=== PATIENT | female | born 1970 | race African-American/Black ===

== ENCOUNTER 2019-08-17 06:55 | Day surgery (SDC) | payer BC ==
[~2019-08-17] VITALS: Ht 170.2 cm; Wt 89.4 kg
[2019-08-17] MEDS ORDERED: RESTORIL 1515 MG/CAP PO (07:35)
[2019-08-17] MEDS ORDERED: CATAPRES 0.1MG0.1 MG PO (07:35)
[2019-08-17] MEDS ORDERED: NORVASC 10MG10 MG PO (07:36)
[2019-08-17] MEDS ORDERED: COZAAR 50MG50 MG/TAB PO (07:36)
[2019-08-17] MEDS ORDERED: LASIX 20MG TABL20 MG PO (07:37)
[2019-08-17] MEDS ORDERED: NATURAL E400 IU PO (07:37)
[2019-08-17] MEDS ORDERED: AMITRIPTYLINE H25 M1 PO (07:37)
[2019-08-17] MEDS ORDERED: B COMPLEX & B121 TAB PO (07:38)
[2019-08-17] MEDS ORDERED: CALCIUM 600MG+D1 TAB PO (07:38)
[2019-08-17] MEDS ORDERED: VITAMINC1000TA PO (07:38)
[2019-08-17 07:39] VITALS: BP 131/97; PULSE 80; TEMP 98.4
[2019-08-17 09:20] VITALS: BP 136/86; PULSE 87; TEMP 97.7
--- NOTE | 2019-08-17 09:20 | NUR ---
Patient arrives to [facility] [place] [facility] via cart, accompanied by Endo RN. Bedside report is received. The patient is coughing, but denies pain or nausea. She is alert and oriented. Her family is at the bedside. Monitoring is applied - VSS and WNL on room air. RT comes to the bedside to administer ordered breathing treatment. Will continue to monitor.
[2019-08-17 09:35] VITALS: BP 117/73; PULSE 87
--- NOTE | 2019-08-17 09:35 | NUR ---
Patient has completed her breathing treatment. Coughing is less frequent. Lung sounds are auscultated and are clear in all lobes. She denies pain or nausea. She is offered and receives water to drink. Gag reflex is intact.
[2019-08-17 09:50] VITALS: BP 118/87; PULSE 80
--- NOTE | 2019-08-17 09:50 | NUR ---
Patient ambulates to the restroom, voids, and returns to room. Gait steady. She states she is ready to go home. Will return with discharge instructions.
--- NOTE | 2019-08-17 10:04 | NUR ---
Discharge instructions are discussed. She denies questions and verbalizes understanding. PIV is removed with catheter intact and hemostasis achieved. She is changing to her clothing independently.
--- NOTE | 2019-08-17 10:08 | NUR ---
Patient is escorted to the exit via wheelchair by staff. She is discharged to home with ride in private vehicle at 1008.
== END 2019-08-17 10:08 | disposition home or self-care (01) ==
LOC: SDCO 06:55
DX: R91.8 Other nonspecific abnormal finding of lung field (principal); E66.9 Obesity, unspecified; G47.33 Obstructive sleep apnea (adult) (pediatric); M19.90 Unspecified osteoarthritis, unspecified site; F17.210 Nicotine dependence, cigarettes, uncomplicated
CPT/HCPCS: J2704; J7120

== ENCOUNTER → 2019-09-20 | Outpatient (CLI) | payer BC ==
[~2019-09-20] VITALS: Ht 170.2 cm; Wt 88.6 kg
[2019-09-20] VITALS (11 sets, daily range): BP systolic 122–164; BP diastolic 80–127; PULSE 55–102
[~2019-09-20] MED LIST: AMITRIPTYLINE H25 M1 PO; B COMPLEX & B121 TAB PO; CALCIUM 600MG+D1 TAB PO; CATAPRES 0.1MG0.1 MG PO; COZAAR 50MG50 MG/TAB PO; LASIX 20MG TABL20 MG PO; MICARDIS80 MG PO; NATURAL E400 IU PO; NORVASC 10MG10 MG PO; RESTORIL 1515 MG/CAP PO; VITAMINC1000TA PO
== END ==
LOC: COL.RAD 13:30
DX: C34.32 Malignant neoplasm of lower lobe, left bronchus or lung (principal); C79.51 Secondary malignant neoplasm of bone; C79.31 Secondary malignant neoplasm of brain; I10 Essential (primary) hypertension

== ENCOUNTER 2019-10-08 07:01 | Outpatient (CLI) | payer BC ==
[~2019-10-08] VITALS: Ht 170.2 cm; Wt 86.4 kg
[2019-10-08 08:07] VITALS: BP 129/98; PULSE 53; TEMP 98.2
[2019-10-08] MEDS ORDERED: COZAAR100 MG PO (08:18)
[2019-10-08] MEDS ORDERED: PROVENTIL0.09 MG/A1 IH (08:20)
[2019-10-08] MEDS ORDERED: ANORO IH (08:21)
[2019-10-08 09:20] VITALS: BP 123/86; PULSE 54; TEMP 97.9
--- NOTE | 2019-10-08 09:20 | NUR ---
Pt returns from thoracentesis via cart and this RN accompanying. Pt alert and oriented. Pt denies pain. Call light within reach. Daughter present in room. Pt requesting diet Pepsi.
--- NOTE | 2019-10-08 09:45 | NUR ---
X-ray here for post-op chest x-ray.
--- NOTE | 2019-10-08 10:00 | NUR ---
Pt taking drink well. No complications voiced by patient.
[2019-10-08 10:10] VITALS: BP 137/97; PULSE 81
--- NOTE | 2019-10-08 10:20 | NUR ---
Discharge instructions given to patient and daughter. Handed to them are a thank you card, discharge information, diagnosis information, and a discharge med sheet. All questions answered to their satisfaction.
--- NOTE | 2019-10-08 10:35 | NUR ---
Pt transferred out of hospital via wheelchair and this RN to waiting private vehicle driven by daughter.
[2019-10-08 12:55] LABS: PLEURAL FLUID RBC 8000 /mm3 (0-0); PLEURAL FLUID WBC 3217 /mm3
[2019-10-08 13:03] LABS: GLUCOSE,PLEURAL FLUID 79 mg/dL; TOTAL PROTEIN,PLEURAL FLUID 4.9 gm/dL
[2019-10-08 13:13] LABS: PLEURAL FLUID APPEARANCE CLOUDY; PLEURAL FLUID COLOR AMBER
[2019-10-08 17:43] VITALS: BP 147/96; PULSE 69
== END 2019-10-08 10:35 | disposition home or self-care (01) ==
LOC: SDCO
PROVIDERS: Internal Medicine Pulmonary Disease
DX: J90 Pleural effusion, not elsewhere classified (principal); I10 Essential (primary) hypertension; E66.9 Obesity, unspecified; M19.90 Unspecified osteoarthritis, unspecified site; G47.33 Obstructive sleep apnea (adult) (pediatric); F17.210 Nicotine dependence, cigarettes, uncomplicated; Z85.118 Personal history of other malignant neoplasm of bronchus and lung; Z88.8 Allergy status to other drugs, medicaments and biological substances
CPT/HCPCS: 19804

== ENCOUNTER 2019-10-22 08:18 | Outpatient (CLI) | payer BC ==
[~2019-10-22] VITALS: Ht 170.2 cm; Wt 86.4 kg
[~2019-10-22 08:18] MED LIST changes: +ANORO IH; +COZAAR100 MG PO; +PROVENTIL0.09 MG/A1 IH
[2019-10-22] MEDS ORDERED: ZOFRAN 4MG T4 MG/TAB PO (08:57)
[2019-10-22] MEDS ORDERED: DECADRON 4MG TAB4 MG PO (08:58)
[2019-10-22 09:16] VITALS: BP 135/105; PULSE 89; TEMP 97.9
[2019-10-22 10:40] VITALS: BP 124/88; PULSE 88; TEMP 98.3
--- NOTE | 2019-10-22 10:40 | NUR ---
Pt returns from Endo procedure via cart and this RN. Monitors on and alarms set. Call light within reach. Friend present in room. Pt desires diet Pepsi. Pt coughing some. Pt denies any complaints of pain or nausea.
[2019-10-22 10:45] VITALS: BP 130/90; PULSE 100
--- NOTE | 2019-10-22 10:50 | NUR ---
Pt taking drink well. No complications voiced.
[2019-10-22 11:00] VITALS: BP 120/88; PULSE 86
[2019-10-22 11:15] VITALS: BP 115/91; PULSE 80
--- NOTE | 2019-10-22 11:23 | NUR ---
Discharge instructions given to pt and friend. Handed to them are a thank you card, discharge instructions, and diagnosis information. All questions answered to their satisfaction.
--- NOTE | 2019-10-22 11:28 | NUR ---
Pt transferred out of hospital via wheelchair and this RN to waiting private vehicle driven by friend.
== END 2019-10-22 11:28 | disposition home or self-care (01) ==
LOC: SDCO
DX: J91.0 Malignant pleural effusion (principal); C34.90 Malignant neoplasm of unspecified part of unspecified bronchus or lung; J44.9 Chronic obstructive pulmonary disease, unspecified; I10 Essential (primary) hypertension; D57.3 Sickle-cell trait; E66.9 Obesity, unspecified; M19.90 Unspecified osteoarthritis, unspecified site; F17.210 Nicotine dependence, cigarettes, uncomplicated; G47.33 Obstructive sleep apnea (adult) (pediatric)
CPT/HCPCS: 19804

== ENCOUNTER 2019-10-25 15:21 | Inpatient (IN) | payer BC ==
[2019-10-25] VITALS (124 sets, daily range): BP systolic 135; BP diastolic 95; PULSE 86; TEMP 98.4; O2SAT 70–100
[~2019-10-25] VITALS: Ht 170.2 cm; Wt 79.4 kg
[~2019-10-25 15:21] MED LIST changes: +DECADRON 4MG TAB4 MG PO; +ZOFRAN 4MG T4 MG/TAB PO
[2019-10-25 17:01] LABS: HEMATOCRIT 40.4 % (37.0-47.0); HEMOGLOBIN 13.3 g/dl (12.5-16.0); MEAN CELL VOLUME 87 fl (80.0-100.0); MEAN CORPUSCULAR HEMOGLOBIN 29 pg (27.0-31.0); MEAN CORPUSCULAR HGB CONC 33 g/dl (33.0-37.0); MEAN PLATELET VOLUME 11.3 fl (7.4-10.4); PLATELET COUNT 159 K/mm3 (130-400); RED BLOOD COUNT 4.63 M/mm3 (4.10-5.30)
[2019-10-25 17:13] LABS: INR 1.3 (0.8-3.0); PROTHROMBIN TIME 14.9 SECONDS (9.7-12.8)
[2019-10-25 17:19] LABS: ALBUMIN 3.9 gm/dL (3.5-5.0); BILIRUBIN,TOTAL 1.1 mg/dL (0.0-1.0); CALCIUM 9.2 mg/dL (8.4-10.2); CREATININE, serum 1.46 (0.52-1.25); POTASSIUM 3.4 mmol/L (3.4-5.0); TOTAL PROTEIN 7.4 gm/dL (6.4-8.2)
[2019-10-25 18:04] LABS: ANISOCYTOSIS 1+; EOSINOPHIL 2 % (0-4); HYPOCHROMIA 1+; LYMPHOCYTE 9 % (20.0-51.0); NEUTROPHILS 89 % (42.0-75.2); PLATELET ESTIMATE NORMAL (NORMAL)
[2019-10-25 18:05] LABS: TEAR DROP CELLS 2+
--- NOTE | 2019-10-25 20:28 | NUR ---
Have received report from AGUSTINA Crow in the ED and well as from OR and anesthesia. Patient arrives at this time via bed. Patient attached to unit monitoring equipment and chest tube to suction. Confirmed with AGUSTINA Vazquez, House supervision that slow intermittent bubbling is happening in the correct chamber and with fluctuation in the water seal. Patient is having nausea/coughing fits and bringing up copious amounts of thick sputum that is clear with streaks of bright red blood in it. Assessment complete, see admisiion B for details. Patient's vitals are stable, she is on room air with no difficulty in saturations. Patient does have labored breathing, but she is coughing so much, that seems to be the issue more than actually being SOA. Patient does state that it does feel a little easier to breathe since the chest tube. Assisted patient to a more comfortable position and she is now resting. Call light within reach. Will continue to monitor.
--- NOTE | 2019-10-25 21:29 | NUR ---
Patient goes into a run of PAT at this time with heart rates ranging from 150-220's. Patient lasts about 90 seconds and we are unable to catch it on EKG as she converted back to SR in the 80's before machine was attached. Patient was asymptomatic with this and with no change in BP. CAROLYN Rosario was at the bedside at the time of start and conversion. Patient's metoprolol to be restarted. Will continue to monitor.
[2019-10-25] MEDS ORDERED: LOPRESSOR 225 MG/TAB PO (21:34)
--- NOTE | 2019-10-25 22:30 | NUR ---
Called and notified CAROLYN Rosario that patient had another run of PAT for about 60 seconds, but is back in SR in the 80's. Metoprolol had only beed given about 15mins prior. Marlene confirms report and states that we will not do anything further at this time and continue to monitor.
[2019-10-25] MEDS ORDERED: MICARDIS80 MG PO (23:30)
[2019-10-26] VITALS (408 sets, daily range): BP systolic 131–144; BP diastolic 95–105; PULSE 76–189; TEMP 98.1–98.9; O2SAT 36–100
[2019-10-26 01:28] LABS: HEMATOCRIT 37.6 % (37.0-47.0); HEMOGLOBIN 12.3 g/dl (12.5-16.0)
[2019-10-26 01:47] LABS: INR 1.4 (0.8-3.0); PROTHROMBIN TIME 15.4 SECONDS (9.7-12.8)
[2019-10-26 05:44] LABS: HEMOGLOBIN 11.7 g/dl (12.5-16.0); MEAN CELL VOLUME 88 fl (80.0-100.0); MEAN CORPUSCULAR HEMOGLOBIN 29 pg (27.0-31.0); MEAN CORPUSCULAR HGB CONC 33 g/dl (33.0-37.0); MEAN PLATELET VOLUME 11.2 fl (7.4-10.4); PLATELET COUNT 142 K/mm3 (130-400); RED BLOOD COUNT 4.09 M/mm3 (4.10-5.30)
[2019-10-26 05:47] LABS: HEMATOCRIT 35.8 % (37.0-47.0)
[2019-10-26 05:50] LABS: INR 1.3 (0.8-3.0); PROTHROMBIN TIME 14.6 SECONDS (9.7-12.8)
[2019-10-26 05:57] LABS: CALCIUM 8.3 mg/dL (8.4-10.2); CREATININE, serum 1.07 (0.52-1.25); POTASSIUM 3.8 mmol/L (3.4-5.0)
--- NOTE | 2019-10-26 07:43 | NUR ---
Bedside report given to AGUSTINA Melton
[2019-10-26 08:02] LABS: BAND 11 % (0-10); LYMPHOCYTE 1 % (20.0-51.0); METAMYELOCYTE 1 % (0-0); NEUTROPHILS 87 % (42.0-75.2); PLATELET ESTIMATE NORMAL (NORMAL)
--- NOTE | 2019-10-26 08:30 | NUR ---
Patient given morning meds-started vomiting stating it felt like the calcium pill got stuck.
--- NOTE | 2019-10-26 09:02 | NUR ---
Initial visit; Patient thanked Renewable Energy Engineer for looking in on her and keeping her in Renewable Energy Engineer's prayers.
--- NOTE | 2019-10-26 10:06 | NUR ---
0913 Patient noted to be in atach-no complaints verbally from patient at this time, ultrasound in progress, BP 132/105, [id number], RR 28 100% SpO2 on RA. Memo notified Dr. Caballero of episode. 0915 Patient HR down to [phone] Caballero in with patient for rounding. Patient still nauseated and vomiting.
--- NOTE | 2019-10-26 10:22 | NUR ---
SW met with the patient to discuss discharge plan. The patient lives alone in [place]. She states that her , Delfina (ph#[phone]), and her are working some things out at this time, so he is not living with her. She states that Delfina is still great support and involved in her care. She reports independence with ADLs and does not have any assistive devices. She has a showerchair. The patient's primary care priver is Paula Bucio PA-C and she receives her medications at [facility] in [place]. She reports no difficulties obtaining her meds. The patient's DPOA-HC is in EMR and it designates her , Delfina. The patient reports that this is correct. The patient has stage 4 lung cancer w/mets to brain. She follows with Dr. Abdalla. She states that she was suppose to start chemotherapy today, but that this will have to be pushed back with her being in the hospital. The patient reports that she plans on returning back home with family support upon discharge. She states that she has some other family members coming to help and stay with her for a few weeks. SW to continue to follow as needed.
[2019-10-26 10:31] LABS: PARTIAL THROMBOPLASTIN TIME 27.2 SECONDS (26.0-37.0)
--- NOTE | 2019-10-26 11:16 | NUR ---
Verbal okay from Dr. Palacios to use port in right chest. Also received other verbal orders for medications. See orders and eMAR.
--- NOTE | 2019-10-26 16:09 | NUR ---
I have just found referral for palliative care consult. Pt is reported to be stable and I will plan on seeing her in am. Linh, primary nurse, was notified.
--- NOTE | 2019-10-26 19:45 | NUR ---
Bedside report received from AGUSTINA Melton. Patient's chest tube dressing is found to be saturated with blood, dressing changed with the assistance of Linh. When dressing was removed patient is having active bleeding from the site, but in small amount. Patient is also coughing up blood streaked sputum and is bleeding from previous IV site in her right AC and left AC lab stick. Bandaid placed at two stick sites. It is also noted sanguineous moderately thick liquid from her chest tube. Patient has 100ml of new blood since checked by Linh last. Heparin remains on hold until recheck.
--- NOTE | 2019-10-26 20:00 | NUR ---
Patient resting in bed at this time. Assessment complete, see shift assessment for details. No new bleeding noted on chest tube dressing or at stick sites in both AC's. Bloody output has slowed from the chest tube and only an additional 10ml noted with nothing present in the tube. Patient's lung sounds have improved from the previous night. Patient appears in good spirits. Has no complaints of pain as long as she is laying comfortably. Only has pain at the chest tube site when moving. No request for pain meds at this time. Patient has no current needs. Will continue to monitor. Call light within reach.
[2019-10-27] VITALS (461 sets, daily range): BP systolic 94–153; BP diastolic 71–100; PULSE 79–129; TEMP 98–98.8; O2SAT 42–100
[2019-10-27 05:33] LABS: MEAN CELL VOLUME 88 fl (80.0-100.0); MEAN CORPUSCULAR HGB CONC 33 g/dl (33.0-37.0); MEAN PLATELET VOLUME 11.1 fl (7.4-10.4); PLATELET COUNT 153 K/mm3 (130-400); RED BLOOD COUNT 3.02 M/mm3 (4.10-5.30); REDCELL DISTRIBUTION WIDTH-CV 16.3 % (11.5-14.5)
[2019-10-27 05:40] LABS: CALCIUM 8.3 mg/dL (8.4-10.2); CREATININE, serum 1.14 (0.52-1.25); POTASSIUM 3.9 mmol/L (3.4-5.0)
[2019-10-27 05:55] LABS: INR 1.3 (0.8-3.0)
[2019-10-27 05:58] LABS: HEMATOCRIT 26.5 % (37.0-47.0); MEAN CORPUSCULAR HEMOGLOBIN 28 pg (27.0-31.0)
[2019-10-27 06:00] LABS: HEMOGLOBIN 8.6 g/dl (12.5-16.0)
[2019-10-27 06:15] LABS: BAND 2 % (0-10); HYPOCHROMIA 1+; LYMPHOCYTE 2 % (20.0-51.0); NEUTROPHILS 95 % (42.0-75.2); PLATELET ESTIMATE NORMAL (NORMAL)
[2019-10-27 06:16] LABS: ANISOCYTOSIS 1+; TARGET CELLS 2+
[2019-10-27 06:18] LABS: OVALOCYTES 1+
[2019-10-27 06:20] LABS: SCHISTOCYTES 1+
--- NOTE | 2019-10-27 06:30 | NUR ---
Patient's dressing is half saturated in blood. Dressing changed at this time and placed vaseline gauze, 4x4 gauze, and medipore tape. Patient continues to have a moderate amount of sangineous drainage from the chest tube and around it. Will continue to monitor. Call light within reach.
--- NOTE | 2019-10-27 07:30 | NUR ---
bedside report given to AGUSTINA Rivas
--- NOTE | 2019-10-27 10:20 | NUR ---
I met with Tamika and her Delfina who is also her DPOA-HC this morning. Tamika and Delfina had just talked with Dr Palacios when I arrived. They are aware of the various procedures that may be necessary to manage her pleural fluid, that we are closely watching her hgb and that blood thinners may need to be stopped if her blood count continues to drop and an IVC filter would then be placed. She was to have seen Dr Abdalla yesterday in the office and was scheduled for chemotherapy today but instead she is in the hospital. Pt is very determined to try to start her chemotherapy and work to manage her cancer--she does realize that this is not curable. She reports that she was always the "strong one" in the family and it is hard for her to try to support her family when she is not feeling so strong. Delfina and Tamika both identify strength for her in her arelis and her family. Family members are coming to be with her to provide extra support in the home. Currently Delfina provides about 70% of her care assistance. Their goal is to continue treatment for her cancer as long as it can be managed. They are anxious for chemotherapy to start. She has completed radiation therapy to her brain mets already.
[2019-10-27 10:40] LABS: HEMATOCRIT 29.3 % (37.0-47.0); HEMOGLOBIN 9.4 g/dl (12.5-16.0)
--- NOTE | 2019-10-27 15:08 | NUR ---
SEE MERGE DOCUMENTATION FOR MEDICATION ADMINISTRATION TIMES AND INTRA/POST PROCEDURE SEDATION ASSESSMENTS.
[2019-10-27 17:50] LABS: COLLECTION METHOD CLEAN CATCH
[2019-10-27 17:58] LABS: PH 7 (5-8); SQUAMOUS EPITHELIAL 0-2 /hpf; URINE APPEARANCE Clear; URINE BACTERIA None Seen /hpf; URINE BILIRUBIN Negative (NEGATIVE); URINE BLOOD Negative (NEGATIVE); URINE COLOR Straw; URINE GLUCOSE Negative (NEGATIVE); URINE KETONE Negative (NEGATIVE); URINE LEUKOCYTE ESTERASE Negative (NEGATIVE); URINE NITRATE Negative (NEGATIVE); URINE PROTEIN(semi-quant) Negative (NEGATIVE); URINE RBC 0-2 /hpf; URINE UROBILINOGEN Negative (NEGATIVE)
[2019-10-28] VITALS (467 sets, daily range): BP systolic 103–134; BP diastolic 69–94; PULSE 62–143; TEMP 97.9–98.4; O2SAT 76–100
[2019-10-28 05:01] LABS: BASO % 0.1 % (0.0-2.0); GRAN # 17.2 (1.4-6.5); GRAN % 86.9 % (42.2-75.2); LYMPH # 1.2 (1.2-3.4); LYMPH % 5.8 % (20.0-51.0); MEAN CELL VOLUME 89 fl (80.0-100.0); MEAN CORPUSCULAR HGB CONC 32 g/dl (33.0-37.0); MEAN PLATELET VOLUME 11.5 fl (7.4-10.4); MONO # 1.2 (0.1-0.6); MONO % 6.2 % (1.7-9.3); PLATELET COUNT 166 K/mm3 (130-400); REDCELL DISTRIBUTION WIDTH-CV 16.5 % (11.5-14.5)
[2019-10-28 05:07] LABS: CALCIUM 8.3 mg/dL (8.4-10.2); CREATININE, serum 1.06 (0.52-1.25); POTASSIUM 3.8 mmol/L (3.4-5.0)
[2019-10-28 05:09] LABS: HEMATOCRIT 24.8 % (37.0-47.0); MEAN CORPUSCULAR HEMOGLOBIN 29 pg (27.0-31.0)
[2019-10-28 05:18] LABS: INR 1.3 (0.8-3.0)
--- NOTE | 2019-10-28 07:28 | NUR ---
Bedside report given to AGUSTINA Rivas
--- NOTE | 2019-10-28 09:46 | NUR ---
Patient reports that she had her IVC filter placed yesterday and they are planning on doing her lung procedure today. She is very anxious to get started on her chemotherapy and would like to hear from Dr Abdalla about a time frame for this. She has been up with PT today and states she is overall feeling much better.
--- NOTE | 2019-10-28 11:33 | NUR ---
SW attended clinical rounds. The patient's , Delfina, at bedside. The patient has been in Afib with RVR this morning. The patient is to have a VATS tomorrow. SW to continue to follow as needed.
--- NOTE | 2019-10-28 14:10 | NUR ---
Pt had not talked with Dr Abdalla about the chemotherapy meds she was to recieve and just wanted to know a little more about them. I called the office and spoke with Alejandra BERRIOS who advised she had been scheduled to recieve ABRAXANE, CARBOPLATIN, and KEYTRUDA. I did take information on these drugs down to her and shared with Tamika and Delfina. I did reinforce to her that she will need to recover from her current situation and be stable and strong enough to proceed with chemotherapy. She verbalized thanks and seemed relieved to learn that even though it is possible that this plan could be revised, that there is a plan in place. Support provided.
[2019-10-29] VITALS (233 sets, daily range): BP systolic 127–148; BP diastolic 83–104; PULSE 65–83; TEMP 97.8–98.5; O2SAT 66–100
[2019-10-29 04:59] LABS: BASO % 0.1 % (0.0-2.0); GRAN # 19.1 (1.4-6.5); GRAN % 83.8 % (42.2-75.2); LYMPH # 2.1 (1.2-3.4); MEAN CELL VOLUME 88 fl (80.0-100.0); MEAN CORPUSCULAR HGB CONC 33 g/dl (33.0-37.0); MEAN PLATELET VOLUME 10.8 fl (7.4-10.4); MONO # 1.3 (0.1-0.6); MONO % 5.7 % (1.7-9.3); PLATELET COUNT 176 K/mm3 (130-400); REDCELL DISTRIBUTION WIDTH-CV 16.4 % (11.5-14.5)
[2019-10-29 05:00] LABS: HEMATOCRIT 24.6 % (37.0-47.0); HEMOGLOBIN 8.1 g/dl (12.5-16.0); MEAN CORPUSCULAR HEMOGLOBIN 29 pg (27.0-31.0)
[2019-10-29 05:11] LABS: ALBUMIN 2.8 gm/dL (3.5-5.0); BILIRUBIN,TOTAL 0.6 mg/dL (0.0-1.0); CALCIUM 8.2 mg/dL (8.4-10.2); CREATININE, serum 0.87 (0.52-1.25); MAGNESIUM 1.9 mg/dL (1.6-2.3); POTASSIUM 3.8 mmol/L (3.4-5.0); TOTAL PROTEIN 5.2 gm/dL (6.4-8.2)
--- NOTE | 2019-10-29 11:06 | NUR ---
GILMA met with the patient and the patient's , Delfina, to follow up and review d/c plan. The patient states that she is doing alright. She is to have a VATS today. The patient and her report that plan is still for the patient to return back home with family support. The patient and her report that they are interested in home health for PT. GILMA provided the patient and Vamsio with Medicare.relocality's list of home health agencies that serve [place]. The patient and Vamsio chose [facility]. GILMA attempted to contact Flori at [facility]. GILMA left her a voicemail and faxed over the referral. The patient has [employer] and will likely need authorization for home health. GILMA awaiting screen.
--- NOTE | 2019-10-29 16:25 | NUR ---
Flori, at [facility], returned GILMA's phone call and reports that she did receive the referral. Flori states that she will start working on insurance authorization. GILMA to continue to follow.
--- NOTE | 2019-10-29 18:30 | NUR ---
Patient arrived to floor via bed. CT is to 20cm of continuous suction. Her drain was changed right before being transferred to the floor. Patient settled in the room. Heparin is infusionat 8ml/hr as ordered per heparin protocol. NS infusing. Oriented patient to room. No other changes at this time. Call light within reach.
[2019-10-30] VITALS (7 sets, daily range): BP systolic 117–145; BP diastolic 73–90; PULSE 70–74; TEMP 97.6–98.3
--- NOTE | 2019-10-30 04:38 | NUR ---
Patient has rested well throughout the night. Chest tube to left chest is to suction per orders. Red-tinged output noted. Continues on heparin drip to right chest port. Patient utilizes bedside commode for toileting. Noted to be weak with transfers. PRN pain medication administered at the beginning of the shift. Noted to be effective. Patient takes medications crushed in applesauce d/t swallowing difficulty. Alert and oriented. Patient denies any further needs and call appropriately for help. Will continue to monitor.
[2019-10-30 05:36] LABS: MEAN CELL VOLUME 88 fl (80.0-100.0); MEAN CORPUSCULAR HGB CONC 33 g/dl (33.0-37.0); MEAN PLATELET VOLUME 11.3 fl (7.4-10.4); PLATELET COUNT 199 K/mm3 (130-400); RED BLOOD COUNT 2.99 M/mm3 (4.10-5.30); REDCELL DISTRIBUTION WIDTH-CV 16.8 % (11.5-14.5)
[2019-10-30 05:39] LABS: HEMATOCRIT 26.4 % (37.0-47.0); HEMOGLOBIN 8.6 g/dl (12.5-16.0); MEAN CORPUSCULAR HEMOGLOBIN 29 pg (27.0-31.0)
--- NOTE | 2019-10-30 05:45 | NUR ---
Critical WBC at 23.4 called to Phoebe Webb APRN. No new orders.
[2019-10-30 05:53] LABS: ALBUMIN 2.8 gm/dL (3.5-5.0); BILIRUBIN,TOTAL 0.6 mg/dL (0.0-1.0); CALCIUM 8.3 mg/dL (8.4-10.2); CREATININE, serum 0.95 (0.52-1.25); MAGNESIUM 1.9 mg/dL (1.6-2.3); POTASSIUM 4.2 mmol/L (3.4-5.0); TOTAL PROTEIN 5.3 gm/dL (6.4-8.2)
[2019-10-30 06:03] LABS: HYPOCHROMIA 1+; LYMPHOCYTE 7 % (20.0-51.0); NEUTROPHILS 89 % (42.0-75.2); PLATELET ESTIMATE NORMAL (NORMAL)
[2019-10-30 06:05] LABS: ANISOCYTOSIS 1+; SCHISTOCYTES 1+
[2019-10-30 06:06] LABS: TARGET CELLS 1+
--- NOTE | 2019-10-30 06:46 | NUR ---
Phoebe Webb APRN notified of HepXa results. Ordered to bolus 1000units of heparin and restart infusion at 9.5ml/hr. Verified with Jan Carroll RN.
--- NOTE | 2019-10-30 10:00 | NUR ---
Patient alert and oriented, answers questions appropriately. See assessment. Chest tube to 20mmhg suction to left chest wall, dressing CDI. Bubbling note to chest tube canister. Lung sounds decreased in bases, clear in upper lobes. PAC to right chest wall accessed, dressing CDI. Heparin infusing into PAC. Heparin gtt at 9.5u/hr, verified against MAR. No c/o at this time.
--- NOTE | 2019-10-30 10:46 | NUR ---
Dr Talavera here to see patient.
--- NOTE | 2019-10-30 12:30 | NUR ---
Heparin XA 0.58. No change. Recheck XA in six hours.
--- NOTE | 2019-10-30 19:18 | NUR ---
HepXa:0.68. Therapeutic level No change. Current rate 9.5ml/hr. Pump verified with Carolina Nolen RN.
[2019-10-31 04:00] VITALS: BP 137/86; PULSE 77; TEMP 97.6
--- NOTE | 2019-10-31 04:37 | NUR ---
Patient has rested well throughout the night. PRN pain medication given at HS. Patient continues on heparin drip at 9.5ml/hr. Next HepXa to be drawn at 0500. Chest tube to left chest and to suction. Port noted to right chest. IVF continue. INT to left hand. Flushes with ease. Ambulates to the bathroom with stand-by assist from staff. Patient takes medications crushed in applesauce. Denies any further needs. Will continue to monitor.
[2019-10-31 06:14] LABS: MEAN CELL VOLUME 88 fl (80.0-100.0); MEAN CORPUSCULAR HGB CONC 33 g/dl (33.0-37.0); MEAN PLATELET VOLUME 11.2 fl (7.4-10.4); PLATELET COUNT 230 K/mm3 (130-400); RED BLOOD COUNT 2.84 M/mm3 (4.10-5.30); REDCELL DISTRIBUTION WIDTH-CV 16.8 % (11.5-14.5)
[2019-10-31 06:23] LABS: HEMATOCRIT 24.9 % (37.0-47.0); HEMOGLOBIN 8.2 g/dl (12.5-16.0); MEAN CORPUSCULAR HEMOGLOBIN 29 pg (27.0-31.0)
[2019-10-31 06:26] LABS: ALBUMIN 2.7 gm/dL (3.5-5.0); BILIRUBIN,TOTAL 0.6 mg/dL (0.0-1.0); CALCIUM 8.3 mg/dL (8.4-10.2); CREATININE, serum 0.96 (0.52-1.25); MAGNESIUM 1.8 mg/dL (1.6-2.3); POTASSIUM 3.6 mmol/L (3.4-5.0); TOTAL PROTEIN 5.3 gm/dL (6.4-8.2)
[2019-10-31 07:36] VITALS: BP 154/89; PULSE 86; TEMP 98.5
--- NOTE | 2019-10-31 08:00 | NUR ---
Drainage noted in all three chambers of chest tube, canister replaced.
[2019-10-31 09:51] LABS: ANISOCYTOSIS 1+; BAND 2 % (0-10); HYPOCHROMIA 1+; LYMPHOCYTE 5 % (20.0-51.0); NEUTROPHILS 87 % (42.0-75.2); NUCLEATED RED BLOOD CELL 1 (0-6); PLATELET ESTIMATE NORMAL (NORMAL)
[2019-10-31 09:54] LABS: SCHISTOCYTES 1+; TARGET CELLS 1+
[2019-10-31 11:16] VITALS: BP 135/86; PULSE 77; TEMP 98.1
[2019-10-31 16:27] VITALS: BP 142/86; PULSE 76; TEMP 98.8
[2019-10-31 19:36] VITALS: BP 147/87; PULSE 78; TEMP 99
--- NOTE | 2019-10-31 23:29 | NUR ---
At 2100, chamber A noted to have 10ml of fluid when it is 20ml that was ordered. A small amount of drainage noted in the 2nd drainage chamber, when it wasn't full in the 1st drainage chamber. Patient stated the container did not fall over. A new container was placed per protocol. 20ml of sterile water was placed in Chamber A. Container placed to suction per orders. Chest tube currently working adequately. Dr. Caceres notified of the chest tube container placement. No new orders. Will continue to monitor.
[2019-10-31 23:30] VITALS: BP 143/88; PULSE 72; TEMP 98.1
[2019-11-01] VITALS (11 sets, daily range): BP systolic 124–152; BP diastolic 51–95; PULSE 63–72; TEMP 97.9–98.1
--- NOTE | 2019-11-01 03:26 | NUR ---
Patient has rested well throughout the night. Chest tube continues to left chest. Continues to suction per orders. PRN pain medication given at HS per patient request. This was effective. Requires assistance to the restroom. Voiding well. HepXa therapeutic. No change to rate. Next draw at 0500. Patient scheduled for VATS procedure today. Phoebe Webb APRN notified that patient continues on heparin drip and asked when it needed to be stopped. Phoebe stated surgeon needs to be notified in the morning and asked when this needs to be stopped. Will continue to monitor patient.
[2019-11-01 08:03] LABS: MEAN CELL VOLUME 90 fl (80.0-100.0); MEAN CORPUSCULAR HGB CONC 33 g/dl (33.0-37.0); MEAN PLATELET VOLUME 10.5 fl (7.4-10.4); PLATELET COUNT 278 K/mm3 (130-400); RED BLOOD COUNT 2.83 M/mm3 (4.10-5.30); REDCELL DISTRIBUTION WIDTH-CV 18.1 % (11.5-14.5)
[2019-11-01 08:13] LABS: CALCIUM 8.5 mg/dL (8.4-10.2); CREATININE, serum 1.06 (0.52-1.25)
[2019-11-01 08:14] LABS: POTASSIUM 3.6 mmol/L (3.4-5.0)
[2019-11-01 08:24] LABS: HEMATOCRIT 25.4 % (37.0-47.0); HEMOGLOBIN 8.3 g/dl (12.5-16.0); MEAN CORPUSCULAR HEMOGLOBIN 29 pg (27.0-31.0)
--- NOTE | 2019-11-01 08:38 | NUR ---
ANESTHESIA ROUNDING AND WAS ABLE TO VISIT WITH THE TWISTER FRAME TENDER REGUARDING THE RESULTS. PLAN IS FOR A VATS PROCEDURE AROUND 1130. HEPARIN GTT OFF.
--- NOTE | 2019-11-01 09:20 | NUR ---
Vegetable Tier attended clinical rounds with the team. SW attempted to contact Flori with [facility] to inquire about the insurance authorization for [facility], left message.
[2019-11-01 09:46] LABS: NEUTROPHILS 99 % (42.0-75.2)
[2019-11-01 09:49] LABS: PLATELET ESTIMATE NORMAL (NORMAL)
--- NOTE | 2019-11-01 11:14 | NUR ---
Pt is planning on VATS procedure later today. REDO is at bedside and supportive. Pt reports had a hard weekend but feels is doing ok, denies questions or needs at this time.
--- NOTE | 2019-11-01 11:15 | NUR ---
PATIENT GOING DOWN TO OR VIA BED. CONSENT ON CHART. FAMILY MEMBER AT BEDSIDE.
--- NOTE | 2019-11-01 13:18 | NUR ---
Flori with [facility] [employer] SUPER[employer] contacted Broadcast Chief Engineer. She reports that the patient has approximately $2000 left on her out of pocket cost for the year and this hospitalization should met that. Flori reports that after the above amount is met the patient's HHS will be covered %100. However, it does not include any dressings for wounds. SW attempted to meet with the patient to provide an update regarding the above information, the patient was out of the room. Will attempt at a later time.
--- NOTE | 2019-11-01 14:05 | NUR ---
PATIENT BACK IN ROOM 342 POST OP VATS. A&O. VSS WITH TELE INPLACE. DENIES PAIN. CHEST TUBE TO SUCTION WITH 250CC TOTAL OUT REPORTED BY PACU, OF BLOODY DRAINAGE. HEAD TO TOE ASSESSMENT COMPLETE. NOTED LUNG BASES WITH FC AND RIGHT LOBES DEMINISHED. PATIENT HAS OCCATIONAL COUGH, NON-PRODUCTIVE NOTED POST OP. 02 AT 2L PER NC WITH SATS IN UPPER 90'S. PATIENT DENIES SOB. AT BEDISDE. CALL LIGHT IN REACH.
--- NOTE | 2019-11-01 15:00 | NUR ---
PATIENT STARTED BACK ON HEPARIN GTT POST OP, PER . CALLED PHARMACY TO CONFIRM DOSING & BOLUS. HXA ORDERED PER PHARMACY.
[2019-11-02] VITALS (7 sets, daily range): BP systolic 109–139; BP diastolic 70–84; PULSE 63–76; TEMP 97.6–99.4
--- NOTE | 2019-11-02 06:00 | NUR ---
Patient slept most the night. Minimal complaints of pain. No complaints of nausea. She had 250ml out from CT this shift. Her heparin did not need changed with last nights lab check. Next check is this morning. Encouraged patient to do deep breathing exercises. Chest tube is to continuous suction. She was up to the bathroom a few times. No other changes at this time. Call line within reach.
--- NOTE | 2019-11-02 08:00 | NUR ---
PATIENT IS ORIENTED X3 BUT DROWSY THIS AM. VSS. C/O MOD DISCOMFORT WITH ACTIVITY. GAVE PRN NORCO, ONE TAB WITH AM MEDS. CRUSHED AM MEDS AND GAVE IN APPLESAUCE. CHEST TUBE TO SUCTION WITH BLOODY DRAINAGE NOTED. A&P LUNG MA ARE DEMINISHED WITH CRACKLES. PATIENT HAD A VATS PROCEDURE YESTERDAY. NOTED OCCATIONAL COUGH, NON-PRODUCTIVE. NO C/O N/V. IV FLUIDS INFUSING VIA PUMP INTO LEFT HAND IV. HEPARIN GTT INFUSING INTO RIGHT PORT. PATIENT EAT/DRINK/VOIDING SUFFICIENT AMOUNTS. HEAD TO TOE ASSESSMENT COMPLETE. CALL LIGHT IN REACH.
--- NOTE | 2019-11-02 08:30 | NUR ---
PATIENT HEP-XA WAS 0.66, NO CHANGE TO HEPARIN GTT RATE.
[2019-11-02 09:00] LABS: MEAN CELL VOLUME 90 fl (80.0-100.0); MEAN CORPUSCULAR HGB CONC 33 g/dl (33.0-37.0); MEAN PLATELET VOLUME 10.5 fl (7.4-10.4); PLATELET COUNT 273 K/mm3 (130-400); REDCELL DISTRIBUTION WIDTH-CV 18.6 % (11.5-14.5)
[2019-11-02 09:08] LABS: HEMATOCRIT 26.1 % (37.0-47.0); HEMOGLOBIN 8.5 g/dl (12.5-16.0); MEAN CORPUSCULAR HEMOGLOBIN 29 pg (27.0-31.0)
--- NOTE | 2019-11-02 09:08 | NUR ---
(late entry 10/31) Division Plant Engineer met with the patient and her , Delfina to discuss HHS. They were agreeable to starting HHS with [facility] at discharge. Will continue to follow.
--- NOTE | 2019-11-02 09:12 | NUR ---
Follow-up visit; Patient thanked Health And Safety Advisor for looking in on her again and keeping her in Health And Safety Advisor's prayers.
[2019-11-02 09:16] LABS: CALCIUM 7.7 mg/dL (8.4-10.2); CREATININE, serum 1.07 (0.52-1.25); POTASSIUM 3.8 mmol/L (3.4-5.0)
[2019-11-02 09:46] LABS: BAND 1 % (0-10); HYPOCHROMIA 1+; LYMPHOCYTE 3 % (20.0-51.0); NEUTROPHILS 94 % (42.0-75.2); PLATELET ESTIMATE NORMAL (NORMAL); TEAR DROP CELLS 1+
[2019-11-02 09:47] LABS: ANISOCYTOSIS 1+; OVALOCYTES 1+
--- NOTE | 2019-11-02 10:28 | NUR ---
Follow-up visit; Patient thanked Spray Gun Operator for looking in on her and wishing her God's blessings.
--- NOTE | 2019-11-02 11:29 | NUR ---
PHYSICAL THERAPY AT BEDSIDE TO EVAL AND TREAT.
--- NOTE | 2019-11-02 13:45 | NUR ---
AT BEDSIDE ROUNDING
--- NOTE | 2019-11-02 16:30 | NUR ---
Have checked on pt several times and she has been sleeping. I did not awaken her.
--- NOTE | 2019-11-02 20:19 | NUR ---
HepXa: 0.38. Level therapeutic according to protocol. No change to rate.
[2019-11-03 04:00] VITALS: BP 134/83; PULSE 73; TEMP 97.7
--- NOTE | 2019-11-03 05:36 | NUR ---
VERIFIED HEPARIN DRIP WITH PRIMARY NURSE TYSHAWN FOR A NEW BAG OF HEPARIN AND PT'S HEPARIN PUMP SET AT 600 UNITS/HR OR 6 ML/HR. ORDER IN MAR WAS 7 ML/HR. THIS WAS CORRECTED BY PRIMARY RN AND CHANGED TO 6 ML/HR IN [facility]. PT AT GOAL AND THERAPEUTIC RATE.
--- NOTE | 2019-11-03 06:07 | NUR ---
Patient has rested well throughout the night. PRN pain medication given at HS. Effective. Chest tube to suction per orders. Dressing is CDI. Patient noted to be "spitting up". PRN Zofran administered and this was effective. Heparin gtt continues at 6ml/hr as reported to this nurse. EMAR rate was not changed to reflect rate on pump. This nurse updated MAR. Patient has been therapeutic in HepXa. Patient overall had a good night. Will report off to day shift nurse.
[2019-11-03 07:47] VITALS: BP 122/76; PULSE 82; TEMP 98.4
[2019-11-03 08:12] LABS: CALCIUM 8.5 mg/dL (8.4-10.2); CREATININE, serum 1.1 (0.52-1.25); POTASSIUM 3.8 mmol/L (3.4-5.0)
[2019-11-03 08:14] LABS: MEAN CELL VOLUME 89 fl (80.0-100.0); MEAN CORPUSCULAR HGB CONC 34 g/dl (33.0-37.0); MEAN PLATELET VOLUME 10.8 fl (7.4-10.4); PLATELET COUNT 208 K/mm3 (130-400); RED BLOOD COUNT 2.93 M/mm3 (4.10-5.30); REDCELL DISTRIBUTION WIDTH-CV 18.7 % (11.5-14.5)
[2019-11-03 08:19] LABS: HEMOGLOBIN 8.8 g/dl (12.5-16.0); MEAN CORPUSCULAR HEMOGLOBIN 30 pg (27.0-31.0)
--- NOTE | 2019-11-03 08:56 | NUR ---
Dr Palacios here to see patient.
[2019-11-03 09:11] LABS: BAND 4 % (0-10); LYMPHOCYTE 6 % (20.0-51.0); NUCLEATED RED BLOOD CELL 1 (0-6); PLATELET ESTIMATE NORMAL (NORMAL)
[2019-11-03 09:12] LABS: ANISOCYTOSIS 1+; NEUTROPHILS 87 % (42.0-75.2); OVALOCYTES 1+
--- NOTE | 2019-11-03 10:12 | NUR ---
Follow-up; offered greetings to Tamika this morning and reiterated that is a good listener and always available for her. Patient thanked .
[2019-11-03 10:45] VITALS: BP 104/76; PULSE 68; TEMP 98.8
--- NOTE | 2019-11-03 11:04 | NUR ---
Patient alert and oriented, answers questions appropriately. See assessment. Chest tube in place to left chest, dressing CDI. Chest tube connected to suction at 20mmhg, bubbling noted to chest tube chamber. Red drainage noted in chest tube canister. PAC accessed to right chest wall, blood return noted. Heparin infusing in PAC at 6ml/hr. No c/o at this time.
--- NOTE | 2019-11-03 14:17 | NUR ---
Dr Tamayo here to see patient.
[2019-11-03 15:11] VITALS: BP 104/74; PULSE 42; TEMP 98.8
[2019-11-03 18:48] LABS: COLLECTION METHOD CLEAN CATCH
[2019-11-03 18:55] LABS: MUCOUS Present /lpf; PH 6 (5-8); SQUAMOUS EPITHELIAL 0-2 /hpf; URINE APPEARANCE Clear; URINE BACTERIA None Seen /hpf; URINE BILIRUBIN Negative (NEGATIVE); URINE BLOOD Negative (NEGATIVE); URINE COLOR Yellow; URINE GLUCOSE Negative (NEGATIVE); URINE KETONE Negative (NEGATIVE); URINE LEUKOCYTE ESTERASE Negative (NEGATIVE); URINE NITRATE Negative (NEGATIVE); URINE PROTEIN(semi-quant) Negative (NEGATIVE); URINE RBC None Seen /hpf; URINE UROBILINOGEN Negative (NEGATIVE)
[2019-11-03 20:00] VITALS: BP 121/81; PULSE 74; TEMP 97.7
--- NOTE | 2019-11-04 02:45 | NUR ---
Patient has rested well throughout the night. PRN pain medication given at HS for pain 6/10 to left chest. Dameon bandage wrapped around her chest to hold the chest tube secure per doctors orders. Dressing remains clean, dry, and intact. Chest tube continues to water seal. Pain has been well controlled this shift. Patient up to the bathroom with 1 assist from staff. Heparin gtt continues at 6ml/hr per APR. HepXa scheduled to be drawn in the AM. Will continue to monitor.
[2019-11-04 04:14] VITALS: BP 114/83; PULSE 63; TEMP 98
[2019-11-04 07:09] LABS: MEAN CELL VOLUME 89 fl (80.0-100.0); MEAN CORPUSCULAR HGB CONC 32 g/dl (33.0-37.0); MEAN PLATELET VOLUME 10.7 fl (7.4-10.4); PLATELET COUNT 224 K/mm3 (130-400); RED BLOOD COUNT 2.81 M/mm3 (4.10-5.30); REDCELL DISTRIBUTION WIDTH-CV 18.9 % (11.5-14.5)
[2019-11-04 07:19] LABS: CALCIUM 8.3 mg/dL (8.4-10.2); CREATININE, serum 1.06 (0.52-1.25); POTASSIUM 4.2 mmol/L (3.4-5.0)
[2019-11-04 07:26] LABS: HEMOGLOBIN 8.1 g/dl (12.5-16.0); MEAN CORPUSCULAR HEMOGLOBIN 29 pg (27.0-31.0)
[2019-11-04 07:44] VITALS: BP 137/82; PULSE 78; TEMP 97.3
[2019-11-04 07:58] LABS: ANISOCYTOSIS 1+; BAND 2 % (0-10); LYMPHOCYTE 5 % (20.0-51.0); NEUTROPHILS 87 % (42.0-75.2); PLATELET ESTIMATE NORMAL (NORMAL)
--- NOTE | 2019-11-04 09:00 | NUR ---
Sitting up in bed with eyes open watching TV. Denies pain at this time. Chest tube to dependent drainage via water seal, minimal red-tinged drainage noted in tubing. Dressing to left chest tube site CDI. Patient denies needs or concerns at this time.
--- NOTE | 2019-11-04 10:02 | NUR ---
Coin Purse Assembler met with the patient to revisit the discharge plan of home with [facility]. SW inquired about the patient's support at home. The patient's [id number], Janessa is from [place]. She was approved for a few weeks of leave and will stay with the patient to provide care and support. The patient's daughter, Anselmo lives in [place] and will be able to support the patient as well.
--- NOTE | 2019-11-04 10:30 | NUR ---
Talked with patient again this morning. She is awake, alert, and smiling as she reports that she is making progress and is anticipating chemotherapy at Dr Abdalla's office next Friday. She reports has never had home health before but feels comfortable with that support. Is aware that chest tube will be removed when chest tube drainage has decreased enough to warrant removal. Denies further questions or needs at this time from me.
--- NOTE | 2019-11-04 10:45 | NUR ---
Patient due for Port-a-cath needle change and also to have INT site dc'd. Ramandeep, student nurse, performs port-a-cath needle and dressing change using sterile technique with instructor in room at bedside. Needle size used is 19 gauge x 1 inch. Return blood received, flushed without difficulty. Tegaderm dressing applied. INT site in left hand dc'd with all intact. Patient tolerates all procedures well. Denies any additional needs at this time.
--- NOTE | 2019-11-04 11:13 | NUR ---
Nicole, at [facility], reports she has spoken to the patient's primary care provider and that they feel like the patient needs drug rehab. She states that the patient visits her provider more than once a week sometimes. Nicole states that they are not able to accept the patient at this time, but if the patient is still here through the weekend, for us to send them another referral packet on Friday. GILMA updated surgical school social workerJazmyne. GILMA to continue to follow.
[2019-11-04 12:22] VITALS: BP 122/73; PULSE 70; TEMP 98.7
--- NOTE | 2019-11-04 14:40 | NUR ---
Sitting in bed. Would like to have feng wrap rewrapped to apply pressure to chest tube site. Patient bra applied for support and feng removed. Patient feels that the bra is giving better support to the site. Assist patient to bathroom. Voids and returns to bed. Denies any additional needs at this time.
[2019-11-04 16:00] VITALS: BP 128/76; PULSE 68; TEMP 97.7
--- NOTE | 2019-11-04 18:27 | NUR ---
Sitting up in bed watching TV. Denies pain at this time. Chest tube remains in place, feels more secure with bra on, with minimal blood-tinged drainage noted in tubing. Chest tube is to water seal dependent drainage. Patient denies any current needs or concerns.
--- NOTE | 2019-11-04 19:00 | NUR ---
Received report from AGUSTINA Garcia. Pt currently lying in bed and has no complaints at this time. Pt did request to take her medication with pudding tonight. Pt has her call light within reach.
[2019-11-04 20:05] VITALS: BP 143/85; PULSE 70; TEMP 98.1
--- NOTE | 2019-11-04 20:15 | NUR ---
Pt dressing was reinforced around her chest due to a small amount of drainage. Pt stated that it felt better with the reinforced dressing. Pt did take her medications better with pudding. Pt also requested something for pain when she got her night time medications as well as something for her nausea. Pt has her call light within reach and her bed is in lowest position.
[2019-11-04 23:24] VITALS: BP 99/65; PULSE 65; TEMP 97.7
--- NOTE | 2019-11-05 02:30 | NUR ---
Pt sleeping in bed and has her call light within reach.
[2019-11-05 03:33] VITALS: BP 110/78; PULSE 67; TEMP 97.6
[2019-11-05 06:40] LABS: MEAN CELL VOLUME 91 fl (80.0-100.0); MEAN CORPUSCULAR HGB CONC 33 g/dl (33.0-37.0); MEAN PLATELET VOLUME 10.5 fl (7.4-10.4); PLATELET COUNT 232 K/mm3 (130-400); RED BLOOD COUNT 2.72 M/mm3 (4.10-5.30); REDCELL DISTRIBUTION WIDTH-CV 19.3 % (11.5-14.5)
[2019-11-05 06:54] LABS: ALBUMIN 2.7 gm/dL (3.5-5.0); BILIRUBIN,TOTAL 0.5 mg/dL (0.0-1.0); CALCIUM 8.4 mg/dL (8.4-10.2); CREATININE, serum 1.17 (0.52-1.25); POTASSIUM 3.7 mmol/L (3.4-5.0); TOTAL PROTEIN 5.1 gm/dL (6.4-8.2)
--- NOTE | 2019-11-05 07:15 | NUR ---
Lying in bed with eyes open. Denies pain at this time. Having some nausea. Offered antiemetic and patient declines. Explain that if she changes her mind to let me know. Lungs sounds diminished on left side. Dressing to chest tube site CDI. Minimal red-tinged drainage in chest tube tubing. Patient hopes to go home today. Denies any additional needs or concerns at this time.
[2019-11-05 07:16] LABS: HEMATOCRIT 24.7 % (37.0-47.0); HEMOGLOBIN 8.1 g/dl (12.5-16.0); MEAN CORPUSCULAR HEMOGLOBIN 30 pg (27.0-31.0)
[2019-11-05 07:47] VITALS: BP 142/78; PULSE 74; TEMP 98.3
[2019-11-05 08:53] LABS: BAND 2 % (0-10); LYMPHOCYTE 8 % (20.0-51.0); NEUTROPHILS 85 % (42.0-75.2); PLATELET ESTIMATE NORMAL (NORMAL)
[2019-11-05 08:54] LABS: HYPOCHROMIA 1+
[2019-11-05 08:58] LABS: ANISOCYTOSIS 1+; SCHISTOCYTES 1+
[2019-11-05 09:00] LABS: OVALOCYTES 1+
--- NOTE | 2019-11-05 10:24 | NUR ---
Automobile Dealer attended clinical rounds with the team. The patient's , Delfina was present.
--- NOTE | 2019-11-05 10:34 | NUR ---
Rating pain 10/10 in abd, describes as crampy. Dr. Miguel was in to see patient. Patient would like pain medication. Administer Morphine as prescribed. Patient also informed we will perform a enema. Patient lying in bed. Spouse in room with the patient.
[2019-11-05 11:45] VITALS: BP 132/82; PULSE 61; TEMP 98.6
--- NOTE | 2019-11-05 11:45 | NUR ---
Chest tube container full. Changed at this time. Patient lying in bed in supine position with eyes closed but opens when name called out. Says that the pain in her abd is a little better and she just wants to rest at this time. Denies any additional needs.
[2019-11-05 16:00] VITALS: BP 135/88; PULSE 79; TEMP 97.5
--- NOTE | 2019-11-05 16:10 | NUR ---
Hall Porter faxed updates to Flori with [facility]. GILMA contacted Flori to provide an update.
--- NOTE | 2019-11-05 16:11 | NUR ---
Patient having increasing pain in abd, rating 8/10, describes as cramping. Was able to get up to commode and pass some gas, no stool was passed. DIANA Rosario, and Dr. Miguel informed. Offer pain medication to patient and she declines at this time and would like to try another enema to see if more stool can come out. Spoke with Dr. Miguel and order received for Fleets enema. WIll administer at this time.
--- NOTE | 2019-11-05 17:15 | NUR ---
Lying in bed with eyes open watching TV. Was able to pass gas, no passage of stool. Patient nausea better. Denies needs at this time.
[2019-11-05 19:46] VITALS: BP 140/93; PULSE 72; TEMP 98.1
--- NOTE | 2019-11-05 22:40 | NUR ---
Pt has had a lot of pain this shift. Pt was given IV Morphine at the time the pain started. Pt was given Zofran when she was able to have it. Pt has rested well after the pain medication. After the nausea was over the pt agreed to take her night medications. Pt took all medications crushed and in chocolate pudding.
[2019-11-05 23:25] VITALS: BP 148/99; PULSE 78; TEMP 98.2
--- NOTE | 2019-11-06 04:22 | NUR ---
Pt stated that she feels way better now that she was able to have a bowel movement. Pt was given warm prune juice and she stated that this seemed to work very well. Pt first bowel movment was very loose the second was soft and formed. The last bowel movement that she had was an extra large bowel movement and pt was cleaned using personal cleaning towels. Pt has her call light within reach and her bed is in lowest position
[2019-11-06 05:21] VITALS: BP 116/68; PULSE 66; TEMP 98.3
--- NOTE | 2019-11-06 06:25 | NUR ---
Pt had a large bowel movement this morning. Pt was not able to make it to the bathroom and we had to get her cleaned up and back in bed. Pt stated that the prune juice really helped her. She has had a few large soft bowel movements. She did state that she felt alot better this morning. During the clean up this morning the aide and I were trying to clean it and it tilted just a little. We were not sure if it tilted enough to mix so we notified charge nurse and she and I have a new canister coming. Pt is back in bed and has her call light within reach. Report was given to AGUSTINA Garcia.
[2019-11-06 07:26] LABS: MEAN CELL VOLUME 90 fl (80.0-100.0); MEAN CORPUSCULAR HGB CONC 33 g/dl (33.0-37.0); MEAN PLATELET VOLUME 10.8 fl (7.4-10.4); PLATELET COUNT 277 K/mm3 (130-400); RED BLOOD COUNT 3.44 M/mm3 (4.10-5.30); REDCELL DISTRIBUTION WIDTH-CV 20.2 % (11.5-14.5)
[2019-11-06 07:27] LABS: CALCIUM 8.4 mg/dL (8.4-10.2); CREATININE, serum 1.46 (0.52-1.25); POTASSIUM 4.1 mmol/L (3.4-5.0)
[2019-11-06 07:37] LABS: HEMATOCRIT 30.9 % (37.0-47.0); HEMOGLOBIN 10.1 g/dl (12.5-16.0); MEAN CORPUSCULAR HEMOGLOBIN 29 pg (27.0-31.0)
[2019-11-06 07:41] VITALS: BP 106/72; PULSE 70; TEMP 97.6
--- NOTE | 2019-11-06 08:09 | NUR ---
Lying in bed with eyes open. Rates pain in back 4/10, describes as an ache, thinks it is due to how positioned in bed. Did not get sleep last night as she had multiple bowel movements, does not want any medications this morning that can cause a BM. Dressing to chest tube site CDI. Will change chest tube container due to possibility of it being tipped when staff was cleaning patient on earlier shift. Patient has some nausea, not too bad at this time. Denies any additional needs or concerns.
--- NOTE | 2019-11-06 10:35 | NUR ---
Patient chest tube connected to continuous suction per Dr. Tamayo's orders. Patient lying in bed on right side with eyes closed. Respirations even and unlabored. No signs or symptoms of discomfort noted at this time.
[2019-11-06 10:44] LABS: LYMPHOCYTE 7 % (20.0-51.0); NEUTROPHILS 92 % (42.0-75.2); PLATELET ESTIMATE NORMAL (NORMAL)
[2019-11-06 11:32] VITALS: BP 100/64; PULSE 71; TEMP 97.7
--- NOTE | 2019-11-06 12:11 | NUR ---
Rating pain 5/10 at chest tube insertion site, throbbing dionte with coughing, would like pain medication. [place] administered as prescribed. Patient sitting up in bed trying to eat some lunch. Denies any additiona needs at this time.
--- NOTE | 2019-11-06 13:09 | NUR ---
Sitting up in bed with eyes open. Feels like pain is getting better, rating 7/10. Chest tube remains to low continuous suction. Patient denies any additional concerns or needs at this time.
--- NOTE | 2019-11-06 15:00 | NUR ---
Chest tube discontinued to continuous suction per order. Patient resting in bed with eyes closed. Respirations even and unlabored. NO signs or symptoms of discomfort noted. Approximately 60mL noted in chest tube cannister.
--- NOTE | 2019-11-06 15:57 | NUR ---
Resting in bed with eyes closed. Opens eyes when enter room. Minimal pain at this time. Says she is jsut tired due to being up all night. Denies any additional needs at this time.
[2019-11-06 16:45] VITALS: BP 129/82; PULSE 68; TEMP 97.9
--- NOTE | 2019-11-06 17:25 | NUR ---
Patient assisted up to chair. Denies need to urinate at this time. Pain okay currently. Chest tube to dependent waterseal drainage. Approximately 95mL in cannister for the day. Patient denies additional needs.
--- NOTE | 2019-11-06 18:00 | NUR ---
Sitting up in chair talking on cell phone. Has not started to eat her dinner as of yet. Says that she is doing okay at this time and denies additional needs.
[2019-11-06 20:49] VITALS: BP 119/85; PULSE 86; TEMP 98.5
[2019-11-07 00:20] VITALS: BP 117/74; PULSE 69; TEMP 97.7
[2019-11-07 04:34] VITALS: BP 124/75; PULSE 75; TEMP 97.7
--- NOTE | 2019-11-07 06:14 | NUR ---
PT RESTING QUIETLY. NO DYSPNEA. 1 NORCO ADMIN. AT [facility].S. LAST NIGHT. NO N/V. CHEST TUBE TO WATER SEAL PATENT/INTACT.
--- NOTE | 2019-11-07 07:24 | NUR ---
Lying in bed with eyes open. Alert and oriented x3. Denies pain at this time. Left lobe lung sounds diminished compared to right. Dressing to chest tube insertion site CDI. Chest tube to water seal dependent drainage with clear red drainage noted in tubing. Patient says that she would like to get up to the shower today. Explain that we can do that but she would not be able to use the water sprayer above the waist due to the chest tube and her port site. Patient verbalizes understanding and denies additional needs at this time.
[2019-11-07 07:40] VITALS: BP 126/81; PULSE 77; TEMP 98.9
--- NOTE | 2019-11-07 10:37 | NUR ---
Patient ambulated in halls with PT. Upon return to room patient developed pain in throat that went clear to chest. Patient says that she got a little dizzy during the walk as well. Explain that she may have went to far for a walk and it could have caused th chest tightness and dizziness. Dr. Miguel was in and seen patient. Viscous lidocaine provided at this time per Dr. Miguel's orders. Patient tearful. Reassurance provided. Patient sitting up in bed watching TV. Encouraged patient to try to relax as that will help with symptoms as well. Patient verbalizes understanding. Denies additional needs at this time.
[2019-11-07 11:46] VITALS: BP 124/84; PULSE 73; TEMP 98.4
--- NOTE | 2019-11-07 12:14 | NUR ---
Rating pain 8/10 in throat and chest area and describes as a pressure. Patient would like pain medication. [place] administered as prescribed. Patient sitting up in bed watching TV and trying to eat lunch. Denies additional needs at this time.
--- NOTE | 2019-11-07 12:46 | NUR ---
SW was informed by nurse of patient that patient would be transported to [facility]. SW asked nurse and house nurse if there was any assistance needed by SW both nurse provided there was no services needed from SW at this time. House nurse and patient's nurse assisted with faxing documentation and setting up transport. Nothing further.
--- NOTE | 2019-11-07 13:50 | NUR ---
Lying in bed with eyes closed. Eyes open when enter room. Feels that pain has decreased since pain pill. Patient would like to continue to rest at this time. Denies additional needs.
--- NOTE | 2019-11-07 14:58 | NUR ---
Dressing change performed to chest tube site per Dr. Tamayo's orders. Removed previous dressing which dressing had serosanguinous drainage on the dressing and was coming through onto the pillow below patient. Suture remains intact. Skin surrounding chest tube with breakdown due to tape. Area cleaned with wash cloth and water. Skin protectant applied to site. Applied xeroform gauze at site where chest tube enters skin. Applied six 4x4 gauze sponges around chest tube. Placed 4x4's on top of chest tube and also under chest tube for support. ABD applied on top of all dressings and site reinforced with hypafix tape. Patient tolerates procedure well. Procedure performed by this nurse and luz marina Tijerina RN.
--- NOTE | 2019-11-07 15:00 | NUR ---
Patient to room from ICU via wheelchair.
--- NOTE | 2019-11-07 15:10 | NUR ---
Patient lying in bed with eyes closed. Opens eyes when name called out. Denies pain. Says that he just wants to go home. Provide reassurance to the patient. Oriented to room. Lung sounds CTA. Heart rate regular. Bowel sounds active in all quadrants. Patient has a dialysis catheter to right upper chest with dressing CDI. AV fistula to left forearm. Heparin drip infusing at 13mL/hr. Provided ice chips to patient per his request. Denies additional needs at this time.
[2019-11-07 16:13] VITALS: BP 126/77; PULSE 71; TEMP 98.5
[2019-11-07 16:16] VITALS: BP 126/77; PULSE 71; TEMP 98.5
[2019-11-07] MEDS ORDERED: GOOD NEIGH1200 MG/15 PO (16:19)
[2019-11-07] MEDS ORDERED: MIRALAX PA17 GM/Dose PO (16:20)
[2019-11-07] MEDS ORDERED: HALLS9.1 MG MM (16:20)
[2019-11-07] MEDS ORDERED: LIDOCAINE HC20 MG/M2 MM (16:21)
[2019-11-07] MEDS ORDERED: PULMICORT0.25 MG/2 IH (16:22)
--- NOTE | 2019-11-07 16:45 | NUR ---
Receive call from Melissa at [facility]. Receive room number of TA15-734, report call number [phone], and accepting provider Dr. Izaguirre. Patient updated on information.
--- NOTE | 2019-11-07 17:23 | NUR ---
Report called to Amalia at [facility].
--- NOTE | 2019-11-07 17:35 | NUR ---
[facility] here to transfer patient to [facility]. Patient ambulates from bed to EMS cart. Patient has all belongings. EMS instructed on care of chest tube and cannister. Patient information packet provided to EMS.
== END 2019-11-07 17:35 | disposition short-term general hospital (02) | DRG 163 ==
LOC: COL.ER 15:21 → SURG 19:12 → ICU 19:12 → COL.ER 20:14 → ICU 20:14 → SURG 10-29 18:01
PROVIDERS: Emergency Medicine; Internal Medicine Pulmonary Disease; Physician Assistant; ADMIT Hospitalist
PROC: 0W9B30Z Drainage of Left Pleural Cavity with Drainage Device, Percutaneous Approach (ICD-10-PCS; 2019-10-25)
PROC: 06H03DZ Insertion of Intraluminal Device into Inferior Vena Cava, Percutaneous Approach (ICD-10-PCS; principal; 2019-10-27)
PROC: 0B5P4ZZ Destruction of Left Pleura, Percutaneous Endoscopic Approach (ICD-10-PCS; 2019-11-01)
DX: J94.2 Hemothorax (principal); I26.99 Other pulmonary embolism without acute cor pulmonale; E43 Unspecified severe protein-calorie malnutrition; C34.90 Malignant neoplasm of unspecified part of unspecified bronchus or lung; C79.31 Secondary malignant neoplasm of brain; N17.9 Acute kidney failure, unspecified; C79.51 Secondary malignant neoplasm of bone; I82.403 Acute embolism and thrombosis of unspecified deep veins of lower extremity, bilateral; I48.19 Other persistent atrial fibrillation; R04.2 Hemoptysis; R65.10 Systemic inflammatory response syndrome (SIRS) of non-infectious origin without acute organ dysfunction; J91.0 Malignant pleural effusion; J44.9 Chronic obstructive pulmonary disease, unspecified; I10 Essential (primary) hypertension; F17.210 Nicotine dependence, cigarettes, uncomplicated; G47.30 Sleep apnea, unspecified; K59.09 Other constipation; D64.9 Anemia, unspecified
CPT/HCPCS: 99223-AI; 99232-AI; 99233-AI; 99239; A7041; A7048; C1880; C9113; J0282; J0456; J0690; J0696; J1100; J1644; J1885; J2250; J2270; J2405; J2543; J2550; J2704; J2930; J3010; J7030; J7050; J7060; J7120; J8540; Q9967